=== PATIENT | male | born 1980 | race Native Hawaiian/Other Pacific Islander ===

== ENCOUNTER 2022-05-21 11:11 | Outpatient (CLI) | payer BC ==
[2022-05-21 11:55] LABS: PLATELET COUNT 270 K/uL (142-355)
[2022-05-21 12:09] LABS: POTASSIUM 4.4 mmol/L (3.6-5.2); SODIUM 139 mmol/L (136-145)
== END 2022-05-21 19:50 | disposition home or self-care (01) ==
LOC: LABW 11:11
PROVIDERS: ATTEND Nurse Practitioner Family
DX: R07.89 Other chest pain (principal); M54.6 Pain in thoracic spine
CPT/HCPCS: 36415; 80053; 82550; 82553; 84484; 85027; 93005